=== PATIENT | female | born 1945 | race Caucasian/White ===

== ENCOUNTER 2018-07-26 21:45 | Emergency (ER) | payer MEDICARE, OTHER ==
[2018-07-27 00:43] LABS: #Lymphocytes 1.3 thou/uL (1.20-3.40); #Monocytes 0.8 thou/uL (0.11-0.59); #Neutrophils 9.2 thou/uL (1.40-6.50); %Basophils 0.3 % (0.0-1.0); %Eosinophils 0.3 % (0.0-10.0); %Monocytes 7.4 % (0.0-10.0); %Neutrophils 80.9 % (42.0-75.0); Hemoglobin 12.8 g/dL (12.0-16.0); Mean Corpuscular HGB CONC 35.2 g/dL (32.0-36.0); Mean Corpuscular Hemoglobin 35.6 pg (27.0-31.0); Mean Platelet Volume 8.5 fL (7.4-10.4); Platelet Count 191 thou/uL (130-400); RBC Distribution Width 11.3 % (11.5-14.5); Red Blood Cell (RBC) Count 3.58 mill/uL (4.20-5.40); White Blood Cell (WBC) Count 11.4 thou/uL (4.8-10.8)
[2018-07-27 00:49] LABS: PTT 28.1 SEC (22.9-36.1); Prothrombin Time 13.7 SEC (12.0-14.7)
[2018-07-27 00:56] LABS: Anion Gap 11 mmol/L (10-20); BUN (Urea Nitrogen) 20 mg/dL (9.8-20.1); Calc. Creatinine Clearance 0 mL/min (70-130); Calcium 8.9 mg/dL (7.8-10.44); Carbon Dioxide 24 mmol/L (23-31); Chloride 109 mmol/L (98-107); Estimated GFR-MDRD 80; Glucose 103 mg/dL (83-110); Sodium 140 mmol/L (136-145)
== END 2018-07-27 02:40 | disposition home or self-care (01) ==
LOC: ERS 21:45
DX: S42.302A Unspecified fracture of shaft of humerus, left arm, initial encounter for closed fracture (principal); E78.00 Pure hypercholesterolemia, unspecified; F32.9 Major depressive disorder, single episode, unspecified; Z87.891 Personal history of nicotine dependence; Z79.899 Other long term (current) drug therapy; W17.89XA Other fall from one level to another, initial encounter
CPT/HCPCS: 29105; 36415; 80048; 85025; 85610; 85730; 86850; 86900; 86901; 93005; 96374; 96376; J2270

== ENCOUNTER 2018-08-08 19:18 | Emergency (ER) | payer MEDICARE, OTHER ==
[2018-08-08] MEDS ORDERED: Ketorolac Tromethamine 30 MG/ML VIAL ONE (19:41)
[2018-08-08] MEDS ORDERED: Lorazepam 2 MG/ML VIAL ONE (19:41)
[2018-08-08] MEDS ORDERED: Fentanyl 100 MCG/2 ML VIAL ONE (19:41)
--- NOTE | 2018-08-08 20:09 | RAD ---
LEFT HUMERUS TWO VIEW 08/08/18 HISTORY: Pain. COMPARISON: Humerus radiographs 07/31/18. FINDINGS: There is loosening along the humeral stem. Cerclage wire as well as plate and screw fixation of the f racture near the stem, although there is a new fracture near the distal margin of the plate and screw fixation between the distal two screws. IMPRESSION: New transversely oriented fracture distal humerus between the distal two screws of the plate and scre w fixation hardware. POS: [facility]
== END 2018-08-08 21:03 | disposition home or self-care (01) ==
LOC: ERS 19:18
DX: S42.402A Unspecified fracture of lower end of left humerus, initial encounter for closed fracture (principal); E78.00 Pure hypercholesterolemia, unspecified; F32.9 Major depressive disorder, single episode, unspecified; Z87.891 Personal history of nicotine dependence; Z79.899 Other long term (current) drug therapy; X58.XXXA Exposure to other specified factors, initial encounter
CPT/HCPCS: 96374; 96375; J1885; J2060; J3010

== ENCOUNTER 2018-09-11 05:55 | Day surgery (SDC) | payer MEDICARE, OTHER ==
[2018-09-10 11:10] VITALS: BMI 34.4
[2018-09-11] MEDS ORDERED: Midazolam HCl 2 mg/2 ml Vial ONE (06:33)
[2018-09-11] MEDS ORDERED: Fentanyl 100 MCG/2 ML VIAL ONE ×4 (06:33→10:30)
[2018-09-11] MEDS ORDERED: CEFAZOLIN/Water 2 GM/20 ML SYRINGE ONE (06:34)
[2018-09-11] MEDS ORDERED: Fentanyl 100 MCG/2 ML VIAL IV PRN (08:13)
[2018-09-11] MEDS ORDERED: Zolpidem Tartrate 5 MG TAB PO PRN (08:13)
[2018-09-11] MEDS ORDERED: Ondansetron HCl/PF 4 MG/2 ML Vial IVP PRN ×2 (08:13→10:12)
[2018-09-11] MEDS ORDERED: Promethazine HCl 25 MG/ML VIAL IM PRN (08:13)
[2018-09-11] MEDS ORDERED: Ropivacaine 0.2% 550 ML 550 ML NERVE BLCK SCH (08:13)
--- NOTE | 2018-09-11 10:04 | RAD ---
LEFT HUMERUS TWO VIEWS: HISTORY: A 73-year-old female with a left humeral fracture and internal fixation for re-fixation. 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 There are now two metal plates and screws stabilizing t he humeral fracture, including a new very elongated metal plate and screw extending down to the later al humeral condyle. IMPRESSION: Additional metal plate and screws placed, fixating a left humeral fracture. POS: [facility]
[2018-09-11] MEDS ORDERED: Promethazine HCl 25 MG/ML VIAL IM/IV PRN (10:12)
[2018-09-11] MEDS ORDERED: Non-Formulary Medication 1 EACH PO PRN (10:12)
[2018-09-11] MEDS ORDERED: Ropivacaine 0.2% HCl/PF (40 MG/20 ML VIAL) ONE (10:13)
[2018-09-11] MEDS ORDERED: Bupivacaine HCl 0.5%/Epinephrine 1:200,000/PF 30 ml Vial ONE (10:13)
[2018-09-11] MEDS ORDERED: Ropivacaine 0.5% HCl/PF (150 MG/30 ML VIAL) ONE (10:13)
--- NOTE | 2018-09-11 11:19 | OP ---
DATE OF PROCEDURE: 09/11/2018 OPERATION: Open reduction and internal fixation of left humerus fracture, periprosthetic. PREOPERATIVE DIAGNOSIS: Left humerus shaft fracture, periprosthetic. POSTOPERATIVE DIAGNOSIS: Left humerus shaft fracture, periprosthetic. COMPLICATIONS: None. ESTIMATED BLOOD LOSS: Minimal. SURGEON: Alvarado Kim M.D. HANDWRITING EXPERT: Misha Agrawal PA-C. IMPLANTS: Synthes posterolateral humeral plate with multiple locking 3.5 mm screws. INDICATIONS: Ms. Yost is a 73-year-old female with a history of a shoulder replacement. Several months ago, she fell from a horse and fractured her humerus. This was treated with plate fixation. Unfortunately, subsequent to that, she injured her arm again and fractured the humerus distal to her previously placed plate. She was attempted treatment with bracing; however, this failed. She had in creasing pain and motion at the fracture site and was indicated for open reduction and internal fixat ion. At this point, we decided to take her to surgery for this. She elected to proceed. DESCRIPTION OF PROCEDURE: Ms. Yost was identified in the preoperative holding area. Her correct extremity was marked. She was carried to the operating room. She was positioned supine. General an esthesia was induced. A multidisciplinary timeout was performed. The left upper extremity was prepp ed and draped in sterile fashion. At this point, we converted the patient to the lateral decubitus position. Her arm was supported ove r a bolster. Next, we prepped and draped the left upper extremity. We then performed a posterior ap proach to the humerus. This dissected down to the subcutaneous tissues to the fascia. The triceps f ascia was incised. We worked more deeply down to the bony level distally. We worked proximally, car efully exposing the radial nerve proximally. We isolated the nerve using a vessel loop. We were car eful to apply minimal traction to the nerve. We worked proximal and distal to the nerve and neurovas cular bundle. At this point, we were able to apply a posterolateral plate along the posterior cortex of the humerus . We placed multiple screws proximally around the stem as well as proximal cable. We then placed mu ltiple screws distally locking the plate to the bone. We took x-ray images confirming hardware place ment and reduction. There were no complications. We thoroughly irrigated with copious lavage. We gem ram closed in layers. A splint was placed. The patient was taken to the recovery room in good condi tion.
[2018-09-11] MEDS ORDERED: Ketorolac Tromethamine 30 MG/ML VIAL ONE (14:18)
[2018-09-11] MEDS ORDERED: PROPOFOL 200 MG/20 ML VIAL ONE (14:18)
[2018-09-11] MEDS ORDERED: Glycopyrrolate 0.2 MG/ML 5 ML SYRINGE ONE (14:18)
[2018-09-11] MEDS ORDERED: Lidocaine 1% PF 5 ML VIAL ONE (14:18)
[2018-09-11] MEDS ORDERED: Ondansetron HCl/PF 4 MG/2 ML Vial ONE (14:18)
--- NOTE | 2018-09-12 08:42 | EKG ---
Test Reason : PREOP Blood Pressure : / mmHG Vent. Rate : 063 BPM Atrial Rate : 063 BPM P-R Int : 156 ms QRS Dur : 084 ms QT Int : 438 ms P-R-T Axes : 040 004 037 degrees QTc Int : 448 ms Normal sinus rhythm Normal ECG When compared with ECG of 27-JUL-2018 01:11, No significant change was found Confirmed by HARINDER REYEZ ([id number]) on 09/12/2018 8:42:11 AM Referred By: DARIUS Confirmed By:HARINDER REYEZ
== END 2018-09-11 12:29 | disposition home or self-care (01) ==
LOC: SDC 05:55
PROVIDERS: ATTEND Orthopaedic Surgery
PROC: 0PSG04Z Reposition Left Humeral Shaft with Internal Fixation Device, Open Approach (ICD-10-PCS; principal; 2018-09-11)
DX: S42.322A Displaced transverse fracture of shaft of humerus, left arm, initial encounter for closed fracture (principal); M97.32XA Periprosthetic fracture around internal prosthetic left shoulder joint, initial encounter; I10 Essential (primary) hypertension; Z79.899 Other long term (current) drug therapy; Z96.612 Presence of left artificial shoulder joint; Z98.890 Other specified postprocedural states; V80.010A Animal-rider injured by fall from or being thrown from horse in noncollision accident, initial encounter
CPT/HCPCS: 24515; 73060; 76001; 93005; 96374; A4306; C1713 ×2; 93010; J0670; J1885; J2001; J2250; J2405; J2704; J2795; J3010; J3370

== ENCOUNTER 2020-08-28 15:10 | Emergency (ER) | payer MEDICARE, OTHER ==
--- NOTE | 2020-08-28 16:09 | ULT ---
Sonogram right upper quadrant HISTORY: Right upper quadrant pain. Findings small mobile echogenic foci are present within the dependent portion of the gallbladder lume n. There is no gallbladder wall thickening or pericholecystic fluid. Common duct is 0.5 cm. Liver unremarkable without focal mass or intrahepatic biliary dilatation. No free fluid. IMPRESSION : Cholelithiasis. No evidence of biliary obstruction.
[2020-08-28] MEDS ORDERED: Fentanyl 100 MCG/2 ML VIAL ONE (16:11)
[2020-08-28] MEDS ORDERED: HYDROmorphone 0.5 MG/0.5 ML SYRINGE ONE (17:45)
[2020-08-30 11:50] LABS: SARS-CoV-2 MS2 Positive; SARS-CoV-2 N Gene Negative; SARS-CoV-2 S Gene Negative; SARS-CoV-2 by NAA Not Detected (NotDetected); SARS-CoV-2 orf1ab Negative
== END 2020-08-28 18:16 | disposition home or self-care (01) ==
LOC: ERS 15:10
DX: K80.20 Calculus of gallbladder without cholecystitis without obstruction (principal); K85.90 Acute pancreatitis without necrosis or infection, unspecified; Z20.828 Contact with and (suspected) exposure to other viral communicable diseases; E78.00 Pure hypercholesterolemia, unspecified; F41.9 Anxiety disorder, unspecified; F32.9 Major depressive disorder, single episode, unspecified
CPT/HCPCS: 76705; U0003; 87635; J1170; J3010

== ENCOUNTER → 2020-09-01 | Day surgery (SDC) | payer MEDICARE, OTHER ==
[2020-08-31 13:14] VITALS: BMI 35.5
[~2020-09-01] MED LIST: Bupivacaine/Epinephrine 0.25% 30 ML VIAL ONE; Famotidine/PF 20 mg/2ml Vial ONE; Fentanyl 100 MCG/2 ML VIAL ONE; HYDROcodone/Acetaminophen 5/325 mg Tablet ONE; Ketorolac Tromethamine 30 MG/ML VIAL ONE; Lidocaine 1% PF 5 ML VIAL ONE; Metoclopramide HCl 10 MG/2 ML VIAL ONE; Ondansetron PF 4 MG/2 ML Vial ONE; PROPOFOL 200 MG/20 ML VIAL ONE; Rocuronium Bromide 10 MG/ML (10ML VIAL) ONE; SUGAMMADEX SODIUM 200 MG/2 ML VIAL ONE; cefOXitin Sodium/Dextrose 2 GM/50 ML BAG ONE
--- NOTE | 2020-09-01 22:08 | OP ---
DATE OF PROCEDURE: 09/01/2020 PREOPERATIVE DIAGNOSIS: Acute cholecystitis. POSTOPERATIVE DIAGNOSIS: Acute cholecystitis. PROCEDURE PERFORMED: Laparoscopic cholecystectomy. ANESTHESIA: General endotracheal. ESTIMATED BLOOD LOSS: Minimal. COMPLICATIONS: None. SPECIMEN: Gallbladder. FINDINGS: Acute cholecystitis. PROCEDURE IN DETAIL: The patient was taken to the operating room and laid supine on the operating table. After general anesthetic was obtained, the abdomen was prepped and draped in a sterile fashion. A curvilinear incision made below the umbilicus. Electrocautery was used to dissect down to and incise the external fascia. The abdominal cavity was entered bluntly using a Christelle clamp. Holding stitch of Vicryl placed on each side of the fascia. Shannan trocar was placed. High-flow pneumoperitoneum was obtained. An upper midline 5-mm port and two right upper quadrant 5-mm ports were placed under direct camera visualization. The gallbladder was retracted from the gallbladder fossa. The peritoneum of the gallbladder was opened anteriorly and posteriorly. The critical view triangle was seen showing only the cystic duct and cystic artery branching medial to lateral with no other branching structures. A clip was placed high on the cystic duct. A small ductotomy was made just proximal to that. Cholangiocath was brought in through a separate stab incision and placed into cystic duct. Cholangiogram was performed which shows no contrast flow into the duodenum and a large stone in the distal common bile duct. There was a moderately enlarged common bile duct, right and left hepatic duct system. Cholangiocath was removed. Two clips were placed proximal to the cystic duct and were cut using laparoscopic scissors. The cystic artery was taken using two clips proximally and one clip distally and cut using laparoscopic scissors. Electrocautery was then used to dissect the gallbladder out of the gallbladder fossa. The gallbladder was placed into an EndoCatch bag and brought out through the Shannan. All port sites were infiltrated using local anesthesia. The right upper quadrant was irrigated copiously using sterile solution until returns are clear. There is no bleeding or bile. All ports were removed under camera visualization. Pneumoperitoneum was let down. Vicryl was used to close the fascial defect below the umbilicus, #4-0 Monocryl and Dermabond to close the skin incision. The patient will need to be transferred to [facility] for postoperative ERCP. Job ID: [id number]
== END ==
LOC: SDC 11:33
PROVIDERS: ATTEND Surgery
PROC: 0FT44ZZ Resection of Gallbladder, Percutaneous Endoscopic Approach (ICD-10-PCS; principal; 2020-09-01)
DX: K80.12 Calculus of gallbladder with acute and chronic cholecystitis without obstruction (principal); F41.9 Anxiety disorder, unspecified; Z79.899 Other long term (current) drug therapy
CPT/HCPCS: 88304; J0694; J1885; J2405; J2704; J2765; J3010; S0028

== ENCOUNTER 2021-04-29 16:26 | Inpatient (IN) | payer MEDICARE, OTHER ==
[~2021-04-29 16:26] MED LIST changes: -Bupivacaine/Epinephrine 0.25% 30 ML VIAL ONE; -Famotidine/PF 20 mg/2ml Vial ONE; -Fentanyl 100 MCG/2 ML VIAL ONE; -HYDROcodone/Acetaminophen 5/325 mg Tablet ONE; +Iopamidol-370 76% 500 ML 1 ML ONE; -Ketorolac Tromethamine 30 MG/ML VIAL ONE; -Lidocaine 1% PF 5 ML VIAL ONE; -Metoclopramide HCl 10 MG/2 ML VIAL ONE; -Ondansetron PF 4 MG/2 ML Vial ONE; -PROPOFOL 200 MG/20 ML VIAL ONE; -Rocuronium Bromide 10 MG/ML (10ML VIAL) ONE; -SUGAMMADEX SODIUM 200 MG/2 ML VIAL ONE; -cefOXitin Sodium/Dextrose 2 GM/50 ML BAG ONE
[2021-04-29] MEDS ORDERED: HYDROmorphone 0.5 MG/0.5 ML SYRINGE ONE (18:46)
[2021-04-29] MEDS ORDERED: Ondansetron ODT 4 MG TAB PO PRN (23:32)
[2021-04-29] MEDS ORDERED: HYDROcodone/Acetaminophen 5/325 mg Tablet PO PRN (23:32)
[2021-04-29] MEDS ORDERED: Acetaminophen 325 MG TAB PO PRN (23:32)
[2021-04-29 23:44] LABS: SARS-CoV-2 PCR by NAA Not Detected (NotDetected)
[2021-04-29] MEDS ORDERED: Ondansetron PF 4 MG/2 ML Vial ONE (23:50)
[2021-04-29] MEDS ORDERED: Morphine 4 MG/ML VIAL ONE (23:50)
[2021-04-29] MEDS: Sodium Chloride 0.9% 1,000 ML IV SCH (23:55)
[2021-04-30] MEDS: Ondansetron PF 4 MG/2 ML Vial IVP PRN (00:04)
[2021-04-30] MEDS: Morphine 4 MG/ML VIAL SLOW IVP PRN ×2 (00:04→21:46)
[2021-04-30] MEDS: Sodium Chloride 0.9% 1,000 ML IV SCH ×4 (04:47→20:31)
[2021-04-30 05:21] VITALS: BMI 35.5
[2021-04-30 05:36] LABS: #Eosinphils 0.2 thou/uL (0.0-0.7); #Lymphocytes 1.7 thou/uL (1.20-3.40); #Monocytes 1.3 thou/uL (0.11-0.59); #Neutrophils 9.4 thou/uL (1.40-6.50); %Basophils 0.2 % (0.0-1.0); %Eosinophils 1.6 % (0.0-10.0); %Lymphocytes 13.4 % (21.0-51.0); %Neutrophils 74.9 % (42.0-75.0); Mean Corpuscular HGB CONC 33.6 g/dL (32.0-36.0); Mean Corpuscular Hemoglobin 34.6 pg (27.0-31.0); Mean Platelet Volume 9.1 fL (7.4-10.4); Platelet Count 194 thou/uL (130-400); RBC Distribution Width 11.6 % (11.5-14.5); Red Blood Cell (RBC) Count 3.75 mill/uL (4.20-5.40); White Blood Cell (WBC) Count 12.5 thou/uL (4.8-10.8)
[2021-04-30 06:01] LABS: Anion Gap 14 mmol/L (10-20); BUN (Urea Nitrogen) 13 mg/dL (9.8-20.1); Calc. Creatinine Clearance 114 mL/min (70-130); Calcium 8.9 mg/dL (7.8-10.44); Carbon Dioxide 23 mmol/L (23-31); Chloride 107 mmol/L (98-107); Glucose 111 mg/dL (83-110); Potassium 3.8 mmol/L (3.5-5.1); Sodium 140 mmol/L (136-145)
[2021-04-30] MEDS ORDERED: Enoxaparin Sodium 40 MG/0.4 ML SYRINGE SC SCH (09:00)
[2021-04-30] MEDS ORDERED: Calcium Carbonate 500 MG ChewTAB PO PRN (16:59)
[2021-04-30] MEDS: Atorvastatin Calcium 20 MG TAB PO SCH (20:25)
[2021-05-01] MEDS: Sodium Chloride 0.9% 1,000 ML IV SCH ×5 (01:40→19:41)
[2021-05-01] MEDS: Morphine 4 MG/ML VIAL SLOW IVP PRN (01:43)
[2021-05-01 02:48] LABS: Troponin I 0.825 ng/mL (< 0.028)
[2021-05-01] MEDS ORDERED: Aspirin 325 MG TAB PO SCH (03:00)
[2021-05-01] MEDS ORDERED: Enoxaparin Sodium 100 MG/ML SYRINGE SC SCH ×2 (03:00→21:00)
[2021-05-01] MEDS: Escitalopram Oxalate 20 mg Tablet PO SCH (05:50)
[2021-05-01 08:40] LABS: Troponin I 1.155 ng/mL (< 0.028)
[2021-05-01] MEDS ORDERED: Iopamidol 370 76% 100 ML VIAL ONE (08:45)
[2021-05-01] MEDS ORDERED: Iopamidol 370 76% 50 ML VIAL FS ONE (08:45)
[2021-05-01 09:15] LABS: CKMB 9.6 ng/mL (0-6.6)
[2021-05-01] MEDS ORDERED: Communication Order-Pharmacy FS SCH (09:15)
[2021-05-01] MEDS ORDERED: Lidocaine 1% (PF) 30 ML VIAL ONE (11:52)
[2021-05-01 11:55] LABS: Critical Call Chem Troponin I RESULT DECREASING; Troponin I 0.931 ng/mL (< 0.028)
[2021-05-01] MEDS ORDERED: Midazolam HCl 2 mg/2 ml Vial ONE (13:17)
[2021-05-01] MEDS ORDERED: Fentanyl 100 MCG/2 ML VIAL ONE (13:17)
[2021-05-01] MEDS ORDERED: Heparin 10,000 UNITS/ 10 ML VIAL ONE (13:28)
[2021-05-01] MEDS ORDERED: Clopidogrel Bisulfate 300 MG TAB ONE (13:53)
[2021-05-01] MEDS ORDERED: Sodium Chloride 0.9% 1,000 ML IV SCH (14:00)
[2021-05-01] MEDS: Ondansetron PF 4 MG/2 ML Vial IVP PRN (19:11)
[2021-05-01] MEDS: Atorvastatin Calcium 20 MG TAB PO SCH (20:36)
[2021-05-02 04:52] LABS: #Eosinphils 0.1 thou/uL (0.0-0.7); #Lymphocytes 0.8 thou/uL (1.20-3.40); #Monocytes 0.7 thou/uL (0.11-0.59); #Neutrophils 4.9 thou/uL (1.40-6.50); %Basophils 0.5 % (0.0-1.0); %Eosinophils 2.2 % (0.0-10.0); %Lymphocytes 11.5 % (21.0-51.0); %Monocytes 10.8 % (0.0-10.0); Mean Corpuscular HGB CONC 34.2 g/dL (32.0-36.0); Mean Corpuscular Hemoglobin 34.8 pg (27.0-31.0); Mean Platelet Volume 8.7 fL (7.4-10.4); Platelet Count 180 thou/uL (130-400); RBC Distribution Width 11.3 % (11.5-14.5); Red Blood Cell (RBC) Count 3.45 mill/uL (4.20-5.40); White Blood Cell (WBC) Count 6.5 thou/uL (4.8-10.8)
[2021-05-02 05:22] LABS: ALT (SGPT) 16 U/L (8-55); AST (SGOT) 31 U/L (5-34); Albumin 3.5 g/dL (3.4-4.8); Alkaline Phosphatase 120 U/L (40-110); Anion Gap 12 mmol/L (10-20); BUN (Urea Nitrogen) 7 mg/dL (9.8-20.1); Bilirubin, Total 1.4 mg/dL (0.2-1.2); Calc. Creatinine Clearance 131 mL/min (70-130); Calcium 8.7 mg/dL (7.8-10.44); Carbon Dioxide 27 mmol/L (23-31); Chloride 105 mmol/L (98-107); Globulin 2.6 g/dL (2.4-3.5); Glucose 95 mg/dL (83-110); Potassium 3.4 mmol/L (3.5-5.1); Protein, Total 6.1 g/dL (5.8-8.1); Sodium 141 mmol/L (136-145)
[2021-05-02] MEDS ORDERED: Sodium Chloride 0.9% 10 ML ONE (08:03)
[2021-05-02] MEDS: Escitalopram Oxalate 20 mg Tablet PO SCH (08:56)
[2021-05-02] MEDS ORDERED: Clopidogrel Bisulfate 75 MG TAB PO SCH (15:45)
[2021-05-02] MEDS ORDERED: Losartan 25 MG TAB PO SCH (15:45)
[2021-05-02] MEDS ORDERED: Aspirin 81 mg Enteric Coated Tablet PO SCH (15:45)
[2021-05-02 16:46] VITALS: BP 161/67; TEMP 99
[2021-05-02] MEDS ORDERED: Atorvastatin Calcium 40 MG TAB PO SCH (21:00)
[2021-05-03] MEDS ORDERED: Clopidogrel Bisulfate 75 MG TAB PO SCH (09:00)
[2021-05-03] MEDS ORDERED: Aspirin 81 mg Enteric Coated Tablet PO SCH (09:00)
[2021-05-03] MEDS ORDERED: Losartan 25 MG TAB PO SCH (09:00)
== END 2021-05-02 18:40 | disposition home or self-care (01) | DRG 981 ==
LOC: ERS 16:26 → ERHOLD 21:12 → SURG B 04-30 05:04 → 2NO 05-01 03:55
PROVIDERS: ADMIT Student in an Organized Health Care Education/Training Program; ATTEND Internal Medicine
PROC: 027034Z Dilation of Coronary Artery, One Artery with Drug-eluting Intraluminal Device, Percutaneous Approach (ICD-10-PCS; principal; 2021-05-01)
PROC: 4A023N7 Measurement of Cardiac Sampling and Pressure, Left Heart, Percutaneous Approach (ICD-10-PCS; 2021-05-01)
PROC: B2111ZZ Fluoroscopy of Multiple Coronary Arteries using Low Osmolar Contrast (ICD-10-PCS; 2021-05-01)
PROC: B2151ZZ Fluoroscopy of Left Heart using Low Osmolar Contrast (ICD-10-PCS; 2021-05-01)
DX: K85.20 Alcohol induced acute pancreatitis without necrosis or infection (principal); I21.4 Non-ST elevation (NSTEMI) myocardial infarction; I25.110 Atherosclerotic heart disease of native coronary artery with unstable angina pectoris; Z20.822 Contact with and (suspected) exposure to COVID-19; E78.5 Hyperlipidemia, unspecified; F10.10 Alcohol abuse, uncomplicated; E78.00 Pure hypercholesterolemia, unspecified; F32.9 Major depressive disorder, single episode, unspecified; F41.9 Anxiety disorder, unspecified; Z90.49 Acquired absence of other specified parts of digestive tract; Z79.899 Other long term (current) drug therapy
CPT/HCPCS: 36415; 74177; 76942; 80048; 80053; 82553; 83690; 84484; 85025; 85347; 92928; 93005; 93010; 93306; 93458; 93798; 96374; 99152; C1874; C9600; J1170; J1644; J1650; J2001; J2250; J2270; J2405; J3010; Q9967; U0003; U0005

== ENCOUNTER 2023-10-08 12:08 | Inpatient (IN) | payer MEDICARE, OTHER ==
[2023-10-08 12:45] VITALS: BMI 36.9
[2023-10-08] MEDS ORDERED: Sodium Chloride 0.9% 1,000 ML IV SCH (13:45)
[2023-10-08] MEDS ORDERED: Ondansetron PF 4 MG/2 ML Vial IVP PRN (13:47)
[2023-10-08] MEDS ORDERED: Morphine 4 MG/ML VIAL SLOW IVP PRN (13:47)
[2023-10-08] MEDS ORDERED: Acetaminophen 325 MG TAB PO PRN (13:48)
[2023-10-08] MEDS ORDERED: Ondansetron ODT 4 MG TAB PO PRN (13:48)
[2023-10-08] MEDS ORDERED: Acetaminophen 650 MG Suppository PR PRN (13:48)
[2023-10-08] MEDS ORDERED: Nitroglycerin 0.4 MG TAB (25 Tab Bottle) SL PRN (13:50)
[2023-10-08] MEDS ORDERED: Lorazepam 0.5 MG TAB PO PRN (13:53)
[2023-10-08] MEDS ORDERED: Electrolyte Replacement Protocol 1 EACH FS SCH (14:00)
[2023-10-08] MEDS ORDERED: Amlodipine 5 MG TAB PO SCH (14:15)
[2023-10-08] MEDS ORDERED: Losartan 25 MG TAB PO SCH (14:15)
[2023-10-08] MEDS ORDERED: Folic Acid 1 MG TAB PO SCH (14:30)
[2023-10-08] MEDS: Thiamine 100 MG TAB PO SCH (14:53)
[2023-10-08] MEDS: Sodium Chloride 0.9% 1,000 ML IV SCH ×2 (14:53→21:14)
[2023-10-08 14:57] LABS: Cardiac Risk 2.5 (Less than 4.5); Cholesterol 146 mg/dl (< 200 Desired); HDL Cholesterol 59 mg/dL (>60 Neg Risk); LDL Cholesterol, Calculated 72 mg/dL; Magnesium 2.1 mg/dL (1.6-2.6); Phosphorus 3.6 mg/dL (2.3-4.7); Triglycerides 77 mg/dL (Less than 150)
[2023-10-08 15:00] LABS: Troponin I Less than 0.010 ng/mL (< 0.028)
[2023-10-08] MEDS ORDERED: Atorvastatin Calcium 40 MG TAB PO SCH (21:00)
[2023-10-08] MEDS: Calcium Carbonate 600 MG TAB PO SCH (21:14)
[2023-10-08] MEDS: Pantoprazole 40 MG VIAL IVP SCH (21:16)
[2023-10-09 04:58] LABS: #Eosinphils 0.2 thou/uL (0.0-0.7); #Monocytes 0.6 thou/uL (0.11-0.59); #Neutrophils 3.6 thou/uL (1.40-6.50); %Basophils 0.4 % (0.0-1.0); %Eosinophils 2.7 % (0.0-10.0); %Lymphocytes 21.4 % (21.0-51.0); %Monocytes 10.8 % (0.0-10.0); %Neutrophils 64.5 % (42.0-75.0); Hematocrit 34.4 % (36.0-47.0); Hemoglobin 11.3 g/dL (12.0-16.0); Mean Corpuscular HGB CONC 32.8 g/dL (32.0-36.0); Mean Corpuscular Hemoglobin 34.1 pg (27.0-31.0); Mean Corpuscular Volume 103.9 fl (78.0-98.0); Mean Platelet Volume 11.6 fL (7.4-10.4); Platelet Count 166 10x3/uL (130-400); RBC Distribution Width 12.6 % (11.5-14.5); Red Blood Cell (RBC) Count 3.31 mill/uL (4.20-5.40); White Blood Cell (WBC) Count 5.6 10x3/uL (4.8-10.8)
[2023-10-09 05:18] LABS: ALT (SGPT) 18 U/L (8-55); AST (SGOT) 21 U/L (5-34); Albumin 3.8 g/dL (3.4-4.8); Alkaline Phosphatase 100 U/L (40-110); Anion Gap 14 mmol/L (10-20); BUN (Urea Nitrogen) 12 mg/dL (9.8-20.1); Bilirubin, Total 1.2 mg/dL (0.2-1.2); Calc. Creatinine Clearance 88 mL/min (70-130); Calcium 8.7 mg/dL (7.8-10.44); Carbon Dioxide 26 mmol/L (23-31); Chloride 106 mmol/L (98-107); Estimated GFR 67; Globulin 2.2 g/dL (2.4-3.5); Glucose 101 mg/dL (83-110); Lipase 41 U/L (8-78); Potassium 3.7 mmol/L (3.5-5.1); Sodium 142 mmol/L (136-145)
[2023-10-09 08:29] LABS: Troponin I Less than 0.010 ng/mL (< 0.028)
[2023-10-09] MEDS ORDERED: Regadenoson 0.4 MG/5 ML SYRINGE ONE (08:52)
[2023-10-09] MEDS ORDERED: Aspirin 81 mg Enteric Coated Tablet PO SCH (09:00)
[2023-10-09] MEDS ORDERED: Vit A,C & E/Lutein/Minerals Tablet PO SCH (09:00)
[2023-10-09] MEDS ORDERED: Amlodipine 5 MG TAB PO SCH (09:00)
[2023-10-09] MEDS ORDERED: Folic Acid 1 MG TAB PO SCH (09:00)
[2023-10-09] MEDS ORDERED: Losartan 25 MG TAB PO SCH ×2 (09:00→21:00)
[2023-10-09] MEDS ORDERED: Multivit, Therapeutic 1 TAB PO SCH (09:00)
[2023-10-09] MEDS ORDERED: Clopidogrel Bisulfate 75 MG TAB PO SCH (09:00)
[2023-10-09] MEDS ORDERED: Escitalopram Oxalate 20 mg Tablet PO SCH (09:00)
[2023-10-09] MEDS ORDERED: Cyanocobalamin (Vitamin B-12) 1,000 MCG TAB PO SCH (09:00)
[2023-10-09] MEDS: Sodium Chloride 0.9% 1,000 ML IV SCH (09:13)
[2023-10-09] MEDS: Calcium Carbonate 600 MG TAB PO SCH (12:45)
[2023-10-09] MEDS: Pantoprazole 40 MG VIAL IVP SCH (12:50)
[2023-10-09] MEDS: Thiamine 100 MG TAB PO SCH (14:31)
[2023-10-09 15:29] VITALS: BP 145/65; TEMP 98.3
[2023-10-09 16:01] LABS: Hematocrit 35.7 % (36.0-47.0); Hemoglobin 11.6 g/dL (12.0-16.0); Platelet Count 167 10x3/uL (130-400)
[2023-10-11] MEDS ORDERED: FLU VACC QS2023(65UP)/MF59C/PF 60 MCG/0.5 ML SYRINGE IM ONE (13:45)
== END 2023-10-09 17:08 | disposition home or self-care (01) | DRG 392 ==
LOC: 2NO 12:08
PROVIDERS: ADMIT Student in an Organized Health Care Education/Training Program; ATTEND Family Medicine
DX: R10.13 Epigastric pain (principal); R07.9 Chest pain, unspecified; I25.2 Old myocardial infarction; E78.5 Hyperlipidemia, unspecified; I10 Essential (primary) hypertension; E78.00 Pure hypercholesterolemia, unspecified; I25.10 Atherosclerotic heart disease of native coronary artery without angina pectoris; Z79.899 Other long term (current) drug therapy; Z79.82 Long term (current) use of aspirin; Z95.5 Presence of coronary angioplasty implant and graft; Z90.49 Acquired absence of other specified parts of digestive tract; Z98.890 Other specified postprocedural states; Z82.49 Family history of ischemic heart disease and other diseases of the circulatory system; F10.90 Alcohol use, unspecified, uncomplicated
CPT/HCPCS: 36415; 36416; 78452; 80053; 80061; 83690; 83735; 84100; 84443; 84484; 85025; 93017; A9502; C9113; J1650; J2785; J7050